=== PATIENT | male | born 1955 | race Caucasian/White ===

== ENCOUNTER 2022-05-27 01:30 | Day surgery (SDC) | payer BC, SELFPAY ==
[2022-05-18 14:09] VITALS: BMI 41.8
--- NOTE | 2022-05-20 11:50 | PC.NURSE ---
PATIENT INSTRUCTED ON HOLDING PLAVIX STARTING ON Tuesday05/23/2022, WILL TAKE LAST DOSE ON Tuesday05/22/2022 AND WILL HOLD TILL AFTER PROCEDURE. WILL REMAIN ON ASA 81 MG PO DAILY.
[2022-05-27 06:40] VITALS: BP 184/99; PULSE 79; RESP 20; TEMP 36.3; O2SAT 100
[2022-05-27] MEDS: LACTATED RINGERS 1,000 ML 150 ML IV CONT (06:42)
--- NOTE | 2022-05-27 07:21 | WPDANESEPPF ---
Anes - Initial Pre Proc Eval Procedure: Operation Date: 05/27/22 07:30 Proposed Procedures p Screening Colonoscopy - Kwadwo Peterson MD Date/Time: 05/27/22 07:21 Surgeon: Kwadwo Peterson MD Pre Op Diagnosis: hx of colon polyps Patient Data Age: 67 Gender: M Height: 1.8 m Weight: 139.3 kg Last Vital Signs Temp 97.3 F L 05/27/22 06:40 Pulse 79 05/27/22 06:40 Resp 20 05/27/22 06:40 BP 184/99 H 05/27/22 06:40 Pulse Ox 100 05/27/22 06:40 O2 Del Method Room Air 05/27/22 06:40 Allergies Allergy/AdvReac Type Severity Reaction Status Date / Time chlorhexidine Allergy Intermediate Rash Verified 05/27/22 06:39 Home Medications Medication Instructions Recorded Confirmed Type aspirin 81 mg tablet,delayed 81 mg PO DAILY 08/27/19 05/27/22 History release (Aspir-) clopidogrel 75 mg tablet 75 mg PO DAILY 08/28/19 05/27/22 History metoprolol tartrate 50 mg tablet 50 mg PO DAILY 08/28/19 05/27/22 History nitroglycerin 0.4 mg sublingual 0.4 mg sublingual Q5M PRN Pain 01/02/20 05/27/22 History tablet (Nitrostat) meloxicam 7.5 mg tablet 7.5 mg PO BID #60 tabs 07/09/20 05/27/22 Rx atorvastatin 80 mg tablet 80 mg PO DAILY 11/17/20 05/27/22 History losartan 50 mg tablet 50 mg PO DAILY #90 tabs 10/26/21 05/27/22 Rx allopurinol 100 mg tablet See Rx Instructions .Route 03/15/22 05/27/22 Rx .COMPLEX #90 tabs doxycycline hyclate 100 mg capsule See Rx Instructions .Route 03/15/22 05/27/22 Rx .COMPLEX #90 caps Patient hx anesthesia problems: none Family hx anesthesia problems: none Results Review: All pre-operative results and documents have been reviewed as part of the pre-operative evaluation. [facility] Past Medical History Medical History Body mass index (BMI) of 50-59.9 in adult (10/14/16) Body mass index [BMI] 40.0-44.9, adult (03/30/18) Body mass index [BMI] 45.0-49.9, adult (07/14/17) CAD S/P percutaneous coronary angioplasty Essential (primary) hypertension Gout, unspecified HLD (hyperlipidemia) Hx of non-ST elevation myocardial infarction (NSTEMI) Metabolic syndrome Morbid (severe) obesity due to excess calories Other and unspecified hyperlipidemia Polyosteoarthritis, unspecified Vitamin D deficiency Surgical History Surgical History Coronary angioplasty status History of total right hip replacement Family History Family History Father Family history of malignant neoplasm, Onset Age: 77 Sibling Family history of diabetes mellitus in first degree relative Mother Hypertension, Onset Age: 52 Social History Social History Smoking packs per day: 1 Smoking cigarettes per day: 20.0 Years smoked: 25 Smoking pack-years: 25.00 Smoking status: Former smoker Tobacco type: cigarettes Alcohol intake: current Drinks per week: 15 Alcohol use details: BEERS Substance use: never Substance use type: does not use Living arrangements: with family Spiritual care concerns: No Anes - Eval Final PreProcedure Day of Procedure 05/27/22 07:21 Patient weight: morbidly obese Heart: regular rate and rhythm Lungs: clear to auscultation Airway: Mallampati scale class II Neurological: alert and oriented Last oral intake: >/= 8 hours ASA classification: III Emergent: no Anesthetic plan: proceed Anesthesia type and monitoring: general GIVS and standard monitoring Results Review: All pre-operative results and documents have been reviewed as part of the pre-operative evaluation. Informed Consent: The patient's anesthetic plan and its attendant risks and benefits were discussed with the patient/family/POA. Questions were solicited and answers provided to the satisfaction of the patient/family/POA.
--- NOTE | 2022-05-27 07:21 | PM.IMHP ---
H&P: HPI History of Present Illness Date/Time: 05/27/22 07:21 Chief Complaint: History of colon polyps. Narrative: This is a 67-year-old white male patient presents for screening colonoscopy. Patient has a history of adenomatous colon polyp removed from colon 2013. Patient reports his current weight appetite bowel movements are stable. He denies abdominal pain. He has had no bleeding. Family history is noncontributory. Review of Systems Review of Systems: Review of systems noncontributory. [facility] Past Medical History Medical History Body mass index (BMI) of 50-59.9 in adult (10/14/16) Body mass index [BMI] 40.0-44.9, adult (03/30/18) Body mass index [BMI] 45.0-49.9, adult (07/14/17) CAD S/P percutaneous coronary angioplasty Essential (primary) hypertension Gout, unspecified HLD (hyperlipidemia) Hx of non-ST elevation myocardial infarction (NSTEMI) Metabolic syndrome Morbid (severe) obesity due to excess calories Other and unspecified hyperlipidemia Polyosteoarthritis, unspecified Vitamin D deficiency Surgical History Surgical History Coronary angioplasty status History of total right hip replacement Family History Family History Father Family history of malignant neoplasm, Onset Age: 77 Sibling Family history of diabetes mellitus in first degree relative Mother Hypertension, Onset Age: 52 Social History Social History Smoking packs per day: 1 Smoking cigarettes per day: 20.0 Years smoked: 25 Smoking pack-years: 25.00 Smoking status: Former smoker Tobacco type: cigarettes Alcohol intake: current Drinks per week: 15 Alcohol use details: BEERS Substance use: never Substance use type: does not use Living arrangements: with family Spiritual care concerns: No Meds Home Medications and Allergies Home Medications Medication Instructions Recorded Confirmed Type aspirin 81 mg tablet,delayed 81 mg PO DAILY 08/27/19 05/27/22 History release (Aspir-) clopidogrel 75 mg tablet 75 mg PO DAILY 08/28/19 05/27/22 History metoprolol tartrate 50 mg tablet 50 mg PO DAILY 08/28/19 05/27/22 History nitroglycerin 0.4 mg sublingual 0.4 mg sublingual Q5M PRN Pain 01/02/20 05/27/22 History tablet (Nitrostat) meloxicam 7.5 mg tablet 7.5 mg PO BID #60 tabs 07/09/20 05/27/22 Rx atorvastatin 80 mg tablet 80 mg PO DAILY 11/17/20 05/27/22 History losartan 50 mg tablet 50 mg PO DAILY #90 tabs 10/26/21 05/27/22 Rx allopurinol 100 mg tablet See Rx Instructions .Route 03/15/22 05/27/22 Rx .COMPLEX #90 tabs doxycycline hyclate 100 mg capsule See Rx Instructions .Route 03/15/22 05/27/22 Rx .COMPLEX #90 caps Allergies Allergy/AdvReac Type Severity Reaction Status Date / Time chlorhexidine Allergy Intermediate Rash Verified 05/27/22 06:39 Vital Signs Vital Signs - 24 hr 05/27/22 06:40 Temperature 97.3 F L Pulse Rate 79 Respiratory Rate 20 Blood Pressure 184/99 H Pulse Oximetry 100 Oxygen Delivery Room Air Exam Narrative: Physical exam reveals patient to be alert. Vital signs stable. HEENT exam is unremarkable. Patient is anicteric. Lungs are clear to auscultation and percussion. Heart is without murmur or extra sounds. Abdominal exam Is obese. bowel sounds are present soft nontender with no organomegaly. Digital external rectal exam is normal. Assessment and Plan Assessment and plan (1) History of colon polyps: Code(s): Z86.010 - Personal history of colonic polyps Status: Acute Assessment and Plan: Patient has a prior history of adenomatous colon polyp. Plan for surveillance colonoscopy now. Further recommendations will be given after endoscopy. (2) Obesity (BMI 30.0-34.9): Code(s):
[2022-05-27 07:42] VITALS: BP 104/51; PULSE 62; RESP 18; O2SAT 98
[2022-05-27 07:52] VITALS: BP 123/62; PULSE 62; RESP 20; O2SAT 99
[2022-05-27 08:02] VITALS: BP 129/69; PULSE 65; RESP 23; O2SAT 98
== END 2022-05-27 08:22 | disposition home or self-care (01) ==
PROVIDERS: PCP Emergency Medicine; Visit Provider Internal Medicine Gastroenterology
PROC: 0DJD8ZZ Inspection of Lower Intestinal Tract, Via Natural or Artificial Opening Endoscopic (ICD-10-PCS; CPT 45378; principal; 2022-05-27 07:30)
DX: Z12.11 Encounter for screening for malignant neoplasm of colon (principal); D12.5 Benign neoplasm of sigmoid colon; K64.8 Other hemorrhoids; I25.10 Atherosclerotic heart disease of native coronary artery without angina pectoris; I10 Essential (primary) hypertension; E78.5 Hyperlipidemia, unspecified; I25.2 Old myocardial infarction; M06.9 Rheumatoid arthritis, unspecified; E55.9 Vitamin D deficiency, unspecified; M15.9 Polyosteoarthritis, unspecified; Z79.02 Long term (current) use of antithrombotics/antiplatelets; Z79.82 Long term (current) use of aspirin; Z87.891 Personal history of nicotine dependence; E66.01 Morbid (severe) obesity due to excess calories; Z68.41 Body mass index [BMI] 40.0-44.9, adult
CPT/HCPCS: 45385; 88305; J2704; J7120

== ENCOUNTER 2022-08-28 20:47 | Emergency (ER) | payer BC, SELFPAY ==
--- NOTE | ~2022-08-28 | XR_ITS ---
EXAMINATION: XR chest 2V Exam Date/Time: 08/28/2022 21:25 DIE TRIPPER HISTORY: chest pain MIDSTERNAL, HX IA 5 STENTS PLACED X 4 YEARS AGO Comparison: 01/16/2018. RESULT: Lines, tubes, and devices: None. Lungs and pleura: Low lung volumes, particularly in the lateral view Diffuse reticular opacities and bronchovascular opacities, increased since the prior study. Cardiomediastinal silhouette: Stable. Other: No acute osseous or upper abdominal finding. IMPRESSION: Pulmonary findings may represent interstitial edema or respiratory bronchiolitis depending on the cli nical context. Reviewed, dictated and finalized at location K. TRIPPER IMPRESSION: Pulmonary findings may represent interstitial edema or respiratory bronchioliti s depending on the clinical context.
--- NOTE | 2022-08-28 20:48 | ECG_ITS ---
Measurements Intervals [place] Rate: 71 P: 74 MD: 164 QRS: 51 QRSD: 108 T: 36 QT: 400 QTc: 437 Interpretive Statements SINUS RHYTHM WITHIN NORMAL LIMITS NO PREVIOUS ECG AVAILABLE FOR COMPARISON Electronically Signed On 08-29-2022 8:35:20 [employer]OELECT[employer] PRODUCTION MANAGER by Dayday Read M.D.
[2022-08-28 20:55] VITALS: BP 176/75; PULSE 74; RESP 18; TEMP 36.6; O2SAT 97
[2022-08-28 21:09] LABS: Basophils Absolute Auto 0.1 K/mm3 (0.0-0.1); Basophils Percent Auto 0.6 % (0.2-1.2); Eosinophils Absolute Auto 0.2 K/mm3 (0-0.3); Eosinophils Percent Auto 2.5 % (0-4.4); Hematocrit 40.6 % (42.0-52.0); Hemoglobin 13.5 g/dL (14.0-18.0); Immature Granulocyte Absolute 0.05 K/mm3 (0.00-0.031); Immature Granulocyte Percent A 0.6 % (0-0.5); Lymphocytes Absolute Auto 2.02 K/mm3 (0.9-3.2); Lymphocytes Percent Auto 24.1 % (18.3-44.2); Mean Corpuscular HGB Conc 33.3 g/dl (32-36); Mean Corpuscular Hemoglobin 30.1 pg (26-34); Mean Corpuscular Volume 90.6 fl (80-100); Mean Platelet Volume 8.5 fl (7.4-10.4); Monocytes Absolute Auto 0.7 K/mm3 (0.1-0.6); Monocytes Percent Auto 8.5 % (2.6-8.5); Neutrophils Absolute Auto 5.3 K/mm3 (1.3-6.7); Neutrophils Percent Auto 63.7 % (45.5-73.1); Platelet Count Result 247 k/mm3 (150-375); Red Blood Count 4.48 M/mm3 (4.6-6.20); Red Cell Distribution Width 13.5 % (11.5-14.5); White Blood Count 8.4 K/mm3 (4.5-10.0)
--- NOTE | 2022-08-28 21:14 | PC.NURSE ---
Patient taken to xray via w/c from waiting room.
[2022-08-28 21:19] LABS: Alanine Aminotransferase 21 U/L (6-50); Albumin Level 4.4 g/dL (3.5-5.1); Alkaline Phosphatase 99 U/L (38-126); Anion Gap 7 mmol/L (8-16); Aspartate Amino Transferase 25 U/L (17-59); Bilirubin,Total 0.6 mg/dL (0.2-1.3); Blood Urea Nitrogen 22 mg/dL (9-20); Carbon Dioxide 25 mmol/L (22-30); Chloride 104 mmol/L (98-107); Estimated CRCL calculation 63 ml/min; Estimated Glomerular Filt Rate 47; Glucose 99 mg/dL (65-110); INR 1.1; Lipase 168 U/L (23-300); Potassium 4.1 mmol/L (3.4-5.0); Prothrombin Time 13.4 Seconds (11.1-14.7); Sodium 136 mmol/L (137-145)
[2022-08-28 21:20] LABS: Partial Thromboplastin Time 27.4 SECONDS (22.3-36.8)
[2022-08-28 21:30] LABS: Troponin I < 0.012 ng/mL (0.000-0.034)
[2022-08-29] VITALS (11 sets, daily range): BP systolic 130–160; BP diastolic 78–83; PULSE 58–94; RESP 14–22; O2SAT 95–100
[2022-08-29 00:53] LABS: Troponin I < 0.012 ng/mL (0.000-0.034)
--- NOTE | 2022-08-29 01:25 | PC.NURSE ---
Patient refused w/c back to room.
--- NOTE | 2022-08-29 03:19 | ED.CHESTPAIN ---
HPI - Chest Pain General Chief Complaint: Chest Pain Stated Complaint: Chest pain Time Seen by Provider: 08/29/22 01:22 History of Present Illness HPI narrative: Patient is a 67-year-old male who presents ER with chest pain. Reports he had finished grilling and sat down to eat and swallowed some food. He then developed some central chest pressure. It lasted for approximately 15 minutes. He did belch at 1 point and is unsure if that helped his symptoms. After symptoms abated he opted to come to the ER. He has had no chest pain since being here. No exertional chest pain. He does have history of AR in the past and sees Dr. Domingo. No fevers or chills or sweats. No nausea or vomiting. No history of gallstones. Denies radiation of pain to his shoulder or back. Related Data Home Medications Medication Instructions Recorded Confirmed aspirin 81 mg tablet,delayed 81 mg PO DAILY 08/27/19 05/27/22 release (Aspir-) clopidogrel 75 mg tablet 75 mg PO DAILY 08/28/19 05/27/22 metoprolol tartrate 50 mg tablet 50 mg PO DAILY 08/28/19 05/27/22 nitroglycerin 0.4 mg sublingual 0.4 mg sublingual Q5M PRN Pain 01/02/20 05/27/22 tablet (Nitrostat) Allergies Allergy/AdvReac Type Severity Reaction Status Date / Time chlorhexidine Allergy Intermediate Rash Verified 07/19/22 09:30 [facility] Past Medical History Medical History Body mass index (BMI) of 50-59.9 in adult (10/14/16) Body mass index [BMI] 40.0-44.9, adult (03/30/18) Body mass index [BMI] 45.0-49.9, adult (07/14/17) CAD S/P percutaneous coronary angioplasty Essential (primary) hypertension Gout, unspecified HLD (hyperlipidemia) Hx of non-ST elevation myocardial infarction (NSTEMI) Metabolic syndrome Morbid (severe) obesity due to excess calories Other and unspecified hyperlipidemia Polyosteoarthritis, unspecified Vitamin D deficiency Surgical History Surgical History Coronary angioplasty status History of total right hip replacement Family History Family History Father Family history of malignant neoplasm, Onset Age: 77 Sibling Family history of diabetes mellitus in first degree relative Mother Hypertension, Onset Age: 52 Social History Social History Smoking packs per day: 1 Smoking cigarettes per day: 20.0 Years smoked: 25 Smoking pack-years: 25.00 Smoking status: Former smoker Tobacco type: cigarettes Alcohol intake: current Drinks per week: 15 Alcohol use details: BEERS Substance use: never Substance use type: does not use Spiritual care concerns: No Exam Narrative: GENERAL: Well-appearing, well-nourished, and in no acute distress. HEAD: Normocephalic, atraumatic. NECK: Supple. CHEST: Clear to auscultation. No respiratory distress. HEART: Regular rate and rhythm. Normal peripheral pulses. ABDOMEN: Soft, nontender, nondistended. EXTREMITIES: Normal range of motion. 2+ edema. SKIN: Warm, dry, chronic venous stasis changes to lower extremities. NEURO: Alert and oriented x3. PSYCH: Normal mood and affect. Course Course Emergency Course: Discussed case with Dr. Read. Patient with brief chest pain at rest. No additional symptoms. Resolved on its own with 3 negative troponins. Patient has not had a previous stress test and likely will need 1. He should contact the office Tuesday morning 08/30/2022 to follow-up with them and get one scheduled. Patient currently has scheduled follow-up in October. Vital Signs Vital signs: Vital Signs Temperature 97.9 F 08/28/22 20:55 Pulse Rate 74 08/28/22 20:55 Respiratory Rate 18 08/28/22 20:55 Blood Pressure 176/75 H 08/28/22 20:55 Pulse Oximetry 97 08/28/22 20:55 Oxygen Delivery Room Air 08/28/22 20:55 [place]
[2022-08-29 03:23] LABS: Troponin I < 0.012 ng/mL (0.000-0.034)
[2022-08-29 03:50] LABS: NT Pro B Type Natriuretic Pept 100 pg/mL (5-100)
== END 2022-08-29 04:21 | disposition home or self-care (01) ==
PROVIDERS: Emergency Provider Emergency Medicine; PCP Emergency Medicine
DX: R07.89 Other chest pain (principal); I25.10 Atherosclerotic heart disease of native coronary artery without angina pectoris; E78.5 Hyperlipidemia, unspecified; I10 Essential (primary) hypertension; I25.2 Old myocardial infarction; Z87.891 Personal history of nicotine dependence; Z95.5 Presence of coronary angioplasty implant and graft
CPT/HCPCS: 36415; 71046; 80053; 83690; 83880; 84484; 85025; 85610; 85730; 93005; 99284

== ENCOUNTER 2023-09-13 09:59 | Inpatient (IN) | payer MEDICARE, OTHER, SELFPAY ==
[2023-09-13] VITALS (8 sets, daily range): BP systolic 119–168; BP diastolic 54–97; PULSE 57–69; RESP 14–20; TEMP 36.2–36.8; O2SAT 92–99; BMI 45.0
--- NOTE | ~2023-09-13 | US_ITS ---
EXAMINATION:US venous doppler LE BI INDICATION:Moderate embolism identified on recent examination. TECHNIQUE: Multiple grayscale, color flow and Doppler images of the right and left lower extremity de ep venous systems were obtained and reviewed. COMPARISON:CTA chest dated 09/13/2023 FINDINGS: There is deep venous thrombosis of the right popliteal vein. Left popliteal vein is patent. The common femoral, superficial femoral demonstrate normal respiratory variation, augmentation and c ompressibility. Color flow is also seen within the posterior tibial, peroneal, greater saphenous and profunda veins. IMPRESSION: 1: Deep venous thrombosis of the right popliteal vein. Reviewed, dictated and finalized at location B. E SALES DRIVER
--- NOTE | ~2023-09-13 | XR_ITS ---
EXAMINATION: XR chest 2V 09/13/2023 11:30 INDICATION: Redness of breath and chest pain PROCEDURE: 2 view chest COMPARISON: 08/28/2022 FINDINGS: The lungs are clear. The cardiomediastinal silhouette is within normal limits. There are no pleural effusions. There is no pneumothorax suspected. IMPRESSION: 1: NO ACUTE CARDIOPULMONARY DISEASE. Reviewed, dictated and finalized at location L. WORKER
--- NOTE | ~2023-09-13 | CT_ITS ---
EXAMINATION: CTA chest PE protocol DATE: 09/13/2023 14:33 REHABILITATION COUNSELOR INDICATION: Pulmonary embolism. Shortness of breath. Dyspnea. TECHNIQUE: Computed tomographic angiography (CTA) of the chest was performed with 100 mL Omnipaque-35 0 intravenous contrast. The dose-length product was 1056.49 mGy-cm. Maximum intensity projection 3D-r econstructions of the aorta and other arteries were constructed by the technologist on a separate wor kstation. COMPARISON: Chest x-ray dated 09/13/2023. FINDINGS: There is extensive pulmonary embolism involving the right main pulmonary artery, but right upper, middle and lower lobe segmental and left lower lobe segmental and bilateral subsegmental pulmo nary arteries. No thoracic lymphadenopathy. There is atherosclerosis of the aorta without aneurysm or dissection. No significant pleural or pericardial effusion. No focal airspace consolidation. No endo bronchial lesions. No pneumothorax. Mild thoracic spondylosis. IMPRESSION: 1. Extensive bilateral pulmonary embolism, large thrombus burden. Reviewed, dictated and finalized at location L. BILITATION COUNSELOR
[2023-09-13 10:28] LABS: Basophils Percent Auto 0.5 % (0.2-1.2); Eosinophils Absolute Auto 0.1 K/mm3 (0-0.3); Eosinophils Percent Auto 0.8 % (0-4.4); Hematocrit 44.9 % (42.0-52.0); Immature Granulocyte Absolute 0.08 K/mm3 (0.00-0.031); Immature Granulocyte Percent A 1.1 % (0-0.5); Lymphocytes Percent Auto 13.7 % (18.3-44.2); Mean Corpuscular HGB Conc 33.4 g/dl (32-36); Mean Corpuscular Hemoglobin 30.1 pg (26-34); Mean Platelet Volume 8.4 fl (7.4-10.4); Monocytes Absolute Auto 0.5 K/mm3 (0.1-0.6); Monocytes Percent Auto 7.1 % (2.6-8.5); Neutrophils Absolute Auto 5.6 K/mm3 (1.3-6.7); Neutrophils Percent Auto 76.8 % (45.5-73.1); Platelet Count Result 222 k/mm3 (150-375); Red Blood Count 4.99 M/mm3 (4.6-6.20); Red Cell Distribution Width 14.1 % (11.5-14.5); White Blood Count 7.3 K/mm3 (4.5-10.0)
[2023-09-13 10:37] LABS: Alanine Aminotransferase 37 U/L (6-50); Albumin Level 4.1 g/dL (3.5-5.1); Alkaline Phosphatase 124 U/L (38-126); Anion Gap 10 mmol/L (8-16); Aspartate Amino Transferase 28 U/L (17-59); Bilirubin,Total 1.3 mg/dL (0.2-1.3); Blood Urea Nitrogen 15 mg/dL (9-20); Calcium 9.4 mg/dL (8.4-10.2); Carbon Dioxide 23 mmol/L (22-30); Chloride 105 mmol/L (98-107); Estimated CRCL calculation 121 ml/min; Estimated Glomerular Filt Rate > 60; Glucose 107 mg/dL (65-110); Lipase 121 U/L (23-300); Sodium 138 mmol/L (137-145)
[2023-09-13 10:41] LABS: Prothrombin Time 14.1 Seconds (11.1-14.7)
[2023-09-13 10:42] LABS: Partial Thromboplastin Time 24.9 SECONDS (22.3-36.8)
[2023-09-13 10:49] LABS: Troponin I < 0.012 ng/mL (0.000-0.034)
[2023-09-13 11:06] LABS: NT Pro B Type Natriuretic Pept 454 pg/mL (19.9-100)
--- NOTE | 2023-09-13 11:38 | ED.SOB ---
HPI - SOB/Dyspnea General Chief Complaint: Shortness of Breath/Dyspnea Stated Complaint: dyspnea Time Seen by Provider: 09/13/23 11:33 Source: patient Mode of arrival: ambulatory Limitations: no limitations History of Present Illness HPI Narrative: 68 YEARS OLD WHITE MALE CAME TO THE EMERGENCY ROOM BECAUSE OF SHORTNESS OF BREATH ON EXERTION OVER THE LAST 4-5 DAYS. HE DENIES ANY FEVER, CHILLS, NAUSEA, VOMITING, CHEST PAIN,. PATIENT REPORTS SYMPTOMS OF COMMON COLD STARTED 2 WEEKS AGO INCLUDING RUNNY NOSE, SORE THROAT, COUGHING RESOLVED IN 1 WEEK. BEEN SYMPTOM FREE OVER THE LAST 7 DAYS, NOTICED SHORTNESS OF BREATH ONLY ON EXERTION OVER THE LAST 5 DAYS. PATIENT REPORTS THAT HE LIVES WITH ASYMPTOMATIC FAMILY Related Data Home Medications Medication Instructions Recorded Confirmed aspirin 81 mg tablet,delayed 81 mg PO DAILY 08/27/19 09/13/23 release (Aspir-) clopidogrel 75 mg tablet 75 mg PO DAILY 08/28/19 09/13/23 indomethacin 50 mg capsule 100 mg PO TID PRN GOUT 09/13/23 09/13/23 Allergies Allergy/AdvReac Type Severity Reaction Status Date / Time chlorhexidine Allergy Intermediate Rash Verified 09/13/23 15:21 Review of Systems Review of Systems: All systems reviewed & are unremarkable except as noted in HPI and below PMFSH Past Medical History Medical History Body mass index (BMI) of 50-59.9 in adult (10/14/16) Body mass index [BMI] 40.0-44.9, adult (03/30/18) Body mass index [BMI] 45.0-49.9, adult (07/14/17) CAD S/P percutaneous coronary angioplasty Essential (primary) hypertension Gout, unspecified HLD (hyperlipidemia) Hx of non-ST elevation myocardial infarction (NSTEMI) Metabolic syndrome Morbid (severe) obesity due to excess calories Other and unspecified hyperlipidemia Polyosteoarthritis, unspecified Vitamin D deficiency Surgical History Surgical History Coronary angioplasty status History of total right hip replacement Family History Family History (Updated 09/13/23 @ 15:21 by Riana Marks RN) Father Family history of malignant neoplasm, Onset Age: 77 Sibling Family history of diabetes mellitus in first degree relative Mother Hypertension, Onset Age: 52 Family history of diabetes mellitus in first degree relative Social History Social History Smoking packs per day: 1 Smoking cigarettes per day: 20.0 Years smoked: 25 Smoking pack-years: 25.00 Smoking status: Never smoker Tobacco type: cigarettes Alcohol intake: current Drinks per week: 6 Alcohol use details: BEERS Substance use: never Substance use type: does not use Do You Feel Safe in your Home?: Yes Lack of Transportation: No Lack of Food: Never True Current Housing: I Have Housing Concerned About Future Housing: No Difficulty Paying Gas/Electric Bills: No Difficulty Paying for Meds: No Currently Unemployed: No Education: Don't Know Difficulty w/ Childcare or Family Care: No Living arrangements: with family Spiritual care concerns: No Exam Narrative: GENERAL APPEARANCE: WELL-DEVELOPED, WELL-NOURISHED SKIN: NORMAL COLOR HEAD: NORMOCEPHALIC, NONTRAUMATIC EYES: CLEAR CONJUNCTIVA ENT: OROPHARYNX NORMAL, EARS NORMAL, NOSE NORMAL NECK: SUPPLE, NONTENDER CHEST AND RESPIRATORY: AIRWAY PATENT, NO RESPIRATORY DISTRESS, NO ACCESSORY MUSCLE USE HEART: REGULAR RATE/RHYTHM ABDOMEN: SOFT, NONTENDER, NO ORGANOMEGALY, QUIET BOWEL SOUNDS VASCULAR: NORMAL PERIPHERAL PULSES, NORMAL CAPILLARY REFILL. MUSCULOSKELETAL: NORMAL RANGE OF MOTION, NONTENDER BACK NEUROLOGIC: ALERT AND ORIENTED ?3, MANAGER PSYCHOLOGY IS NORMAL TESTED, NO GROSS MOTOR DEFICIT
[2023-09-13 12:05] LABS: Alveolar/Arterial O2 Gradient 52.1 mmHg; Base Excess ABG -1.6 mEq/l (+/-2.0); Device ROOM AIR; Fractional Inspired Oxygen 21 %; HCO3 ABG 21.2 mEq/l (22.0-26.0); Modified Allen's Test Pass; Oxygen Content ABG 18.7 %vol (16.0-22.0); Oxygen Saturation ABG 92.7 % (95.0-100.0); Oxyhemoglobin 89.9 % THb (90.0-100.0); PCO2 ABG 30.9 mmHg (35.0-45.0); PO2 ABG 60.6 mmHg (80.0-100.0); PO2 FiO2 Ratio Arterial Blood 2.89 %; Site Drawn LEFT RADIAL; Total Hemoglobin 14.8 g/dL (12.0-18.0); pH ABG 7.454 (7.350-7.450)
[2023-09-13 12:23] LABS: Influenza A QL RT-PCR Negative (Negative); Influenza B QL RT-PCR Negative (Negative); RSV RNA, RT-PCR Negative (Negative); SARS-CoV-2 RNA PCR Positive (Negative)
[2023-09-13 12:39] LABS: Lactic Acid Reflex 1.4 mmol/L (0.7-2.0)
--- NOTE | 2023-09-13 13:06 | ECG_ITS ---
Measurements Intervals [place] Rate: 64 P: 71 [place]: 174 QRS: 66 QRSD: 114 T: 41 QT: 404 QTc: 418 Interpretive Statements SINUS RHYTHM WITH OCCASIONAL VENTRICULAR PREMATURE COMPLEXES COMPARED TO ECG 08/28/2022 21:01:21 NO SIGNIFICANT CHANGES Electronically Signed On 09-13-2023 16:02:07 [employer] HEAT WELDER by Kathia Crain M.D.
[2023-09-13] MEDS: FUROSEMIDE INJ 40 MG/4 ML VIAL IV PUSH (13:20)
[2023-09-13] MEDS: ACETAMINOPHEN 325 MG TABLET 650 MG PO (13:21)
[2023-09-13 13:27] LABS: Troponin I < 0.012 ng/mL (0.000-0.034)
--- NOTE | 2023-09-13 15:12 | ADMGEN ---
This patient, Joaquin Greer, was admitted to 3 [facility] Surg Room 313-01. Patient/family oriented to hospital policies and general routines including ID bracelet, bed and alarms, visiting hours, pain management, procedures, bathroom and other care routines, personal items, smoking policy, room service/diet, and visiting hours. Information on how to activate the Rapid Response Team has been discussed. Patient/Family are encouraged to report perceived risks to care and to ask questions if they do not understand what they are told or what they should do. Report from Luisa in ER.
--- NOTE | 2023-09-13 15:48 | ECHO_ITS ---
Patient Info Name: Joaquin Greer Age: 68 years : 1955 Gender: Male Ht: 70 in Wt: 313 lbs BSA: 2.72 m2 HR: 76 bpm Heart Rhythm: Sinus Rhythm Technical Quality: Good Exam Date: 09/13/2023 4:06 PM Exam Location: Echo Lab Patient Status: Outpatient Admit Date: 09/13/2023 Staff Ordering Physician: Erica Macdonald PA-C Cylinder Steamer: Estrella Becker RDCS Attending Provider: Sage Dan MD Referring Physician: Torres DAVIS; Exam Type: CA echo dop color flow w con Study Info Indications - extensive PE Complete two-dimensional, color flow and Doppler transthoracic echocardiogram is performed with contrast to opacify the left ventricle and to improve the deliniation of the left ventricle endocardial borders. Contrast/Agitated Saline Contrast/Ag. Saline: Definity Amount: 3.00 ml Summary 1. Left ventricular chamber dimension is normal. 2. Left ventricular systolic function is normal, estimated at 65-70%. 3. The left ventricular diastolic function is grade I diastolic dysfunction. 4. Right ventricular chamber dimension is normal. 5. Right ventricular systolic function is normal. 6. There is trace mitral valve regurgitation. 7. There is trace tricuspid valve regurgitation. 8. There is trivial posterior pericardial effusion. Left Ventricle Left ventricular chamber dimension is normal. Left ventricular systolic function is normal, estimated at 65-70%. There is no increased left ventricular wall thickness. The left ventricular diastolic function is grade I diastolic dysfunction. Right Ventricle Right ventricular chamber dimension is normal. Right ventricular systolic function is normal. Left Atria Left atrial chamber dimension is normal. Right Atria Right atrial chamber dimension is normal. Atrial Septum Intact interatrial septum visualized by color flow imaging. Aortic Valve The aortic valve is not well visualized. There is no aortic valve stenosis. There is no aortic valve regurgitation. Pulmonic Valve The pulmonic valve is not well visualized. Mitral Valve There is trace mitral valve regurgitation. Tricuspid Valve There is trace tricuspid valve regurgitation. Pericardium/Pleural There is trivial posterior pericardial effusion. Inferior Vena Cava Normal inferior vena cava with >50% collapse upon inspiration consistent with normal right atrial pressure, 3 mmHg. Aorta The aortic root size at the sinus of Valsalva is normal. Left Ventricular Outflow Tract Name Value Normal LVOT 2D LVOT Diameter 2.00 cm LVOT Doppler LVOT Peak Gradient 4 mmHg LVOT Mean Gradient 2 mmHg LVOT VTI 24.22 cm LVOT VTI/AV VTI Ratio 0.80 LVOT Stroke Volume 75.69 ml LVOT CO 4.55 l/min LVOT CI 1.67 L/min/m2 Pulmonic Valve Name Value Normal RVOT Doppler
[2023-09-13] MEDS: PERFLUTREN LIPID MICROSPHERES 1.5 ML VIAL DILUTED TO 10 ML TOTAL VOLUME IV PUSH (16:10)
[2023-09-13 16:22] LABS: Basophils Absolute Auto 0.1 K/mm3 (0.0-0.1); Basophils Percent Auto 0.8 % (0.2-1.2); Eosinophils Percent Auto 0.4 % (0-4.4); Hematocrit 43.1 % (42.0-52.0); Hemoglobin 14.6 g/dL (14.0-18.0); Immature Granulocyte Absolute 0.05 K/mm3 (0.00-0.031); Immature Granulocyte Percent A 0.6 % (0-0.5); Lymphocytes Absolute Auto 1.15 K/mm3 (0.9-3.2); Lymphocytes Percent Auto 14.8 % (18.3-44.2); Mean Corpuscular HGB Conc 33.9 g/dl (32-36); Mean Corpuscular Hemoglobin 29.8 pg (26-34); Mean Platelet Volume 8.1 fl (7.4-10.4); Monocytes Absolute Auto 0.5 K/mm3 (0.1-0.6); Monocytes Percent Auto 6.7 % (2.6-8.5); Neutrophils Percent Auto 76.7 % (45.5-73.1); Platelet Count Result 215 k/mm3 (150-375); White Blood Count 7.8 K/mm3 (4.5-10.0)
--- NOTE | 2023-09-13 16:35 | IVDEFINITY ---
Prior to administration of IV Definity the patient was educated on the risks and benefits of the imaging enhancing agent including potential adverse side effects. The patient verbalized understanding. Allergies were verified. No exclusion criteria were identified and at least one of the following inclusion criteria were met: 1) physician request, 2) patient technically difficult to image (per the [place] [employer] Echocardi[employer] guidelines of two or more segments not discernable within the apical view), or 3) questionable left ventricular function. ?
[2023-09-13 16:40] LABS: Troponin I < 0.012 ng/mL (0.000-0.034)
[2023-09-13] MEDS: HEPARIN SODIUM 5,000 UNITS/ML VIAL 8000 UNITS IV PUSH (16:41)
[2023-09-13] MEDS: HEPARIN SOD/D5W 100 UNITS/ML 25,000 UNITS/250 ML BAG 15 UNITS IV CONT (16:42)
--- NOTE | 2023-09-13 17:47 | PM.IMHP ---
H&P: HPI History of Present Illness Date/Time: 09/13/23 15:30 Chief Complaint: Shortness of breath. Narrative: This is a very pleasant 58-year-old male with coronary artery disease with history of stents, hypertension, hyperlipidemia, and arthritis who presented to the emergency department via private vehicle from home for evaluation of shortness of breath. The patient provides the following history. About 2 weeks ago he developed symptoms of what he presumed was the common cold including sweats, runny nose, sore throat, dry cough, and mild shortness of breath. URI symptoms resolved however he remained short of breath and over the past 4 to 5 days he has become increasingly short of breath and he is now feeling short of breath with everyday activities of daily living. He denies sick contacts. He also denies fever, syncope, near syncope, chest pain, pleuritic pain, palpitations, sensations of racing heart, nausea, vomiting, diarrhea, and calf pain. In the ED: He was afebrile on arrival with stable blood pressures. Heart rate has been in the 60s in a sinus rhythm. Labs were significant for WBC count of 7.3, hemoglobin 15.0, normal electrolytes, lactic acid 1.4, troponin less than 0.012, proBNP 454. He was positive for SARS-CoV-2 by PCR but was negative for influenza and RSV. Chest x-ray showed no acute cardiopulmonary disease. Chest CTA showed extensive bilateral pulmonary embolism with a large thrombus burden. He has been started on a heparin drip and is being admitted for further treatment and close monitoring. Review of Systems Review of Systems: Twelve systems were reviewed and are negative except for as per HPI. COUNTS INCLUDE 234 BEDS AT THE [facility] Past Medical History Medical History (Updated 09/14/23 @ 00:53 by Erica Macdonald PA-C) Arthritis Coronary artery disease Essential (primary) hypertension Gout Hyperlipidemia Hypertension Metabolic syndrome Vitamin D deficiency Surgical History Surgical History (Updated 09/14/23 @ 00:51 by Erica Macdonald PA-C) History of coronary angioplasty with insertion of stent History of total right hip replacement Family History Family History Father Family history of malignant neoplasm, Onset Age: 77 Sibling Family history of diabetes mellitus in first degree relative Mother Hypertension, Onset Age: 52 Family history of diabetes mellitus in first degree relative Social History Social History (Updated 09/14/23 @ 00:52 by Erica Macdonald PA-C) Social History: Surrogate medical decision maker: Pia Escobar, spouse. Code status: Full code. Smoking packs per day: 1 Smoking cigarettes per day: 20.0 Years smoked: 25 Smoking pack-years: 25.00 Smoking status: Former smoker Tobacco type: cigarettes Alcohol intake: current Drinks per week: 6 Alcohol use details: Beer. Substance use: never Substance use type: does not use Do You Feel Safe in your Home?: Yes Lack of Transportation: No Lack of Food: Never True Current Housing: I Have Housing Concerned About Future Housing: No Difficulty Paying Gas/Electric Bills: No Difficulty Paying for Meds: No Currently Unemployed: No Education: Don't Know Difficulty w/ Childcare or Family Care: No Living arrangements: with family Additional living arrangements comments: Lives with spouse in [place]. Additional occupation/education comments: Desk job, works in sales (cabinetry). Spiritual care concerns: No Meds Home Medications and Allergies Home Medications Medication Instructions Recorded Confirmed Type aspirin 81 mg tablet,delayed 81 mg PO DAILY 08/27/19 09/13/23 History release (Aspir-) clopidogrel 75 mg tablet 75 mg PO DAILY 08/28/19 09/13/23 History atorvastatin 80 mg tablet See Rx Instructions .Route 02/11/23 09/13/23 Rx .COMPLEX #90 tabs allopurinol 100 mg tablet See Rx Instructions .Route 03/14/23 09/13/23
[2023-09-13 23:32] LABS: Partial Thromboplastin Time 79.9 SECONDS (22.3-36.8)
[2023-09-14] VITALS (8 sets, daily range): BP systolic 112–148; BP diastolic 63–88; PULSE 51–88; RESP 18; TEMP 35.7–36.7; O2SAT 94–99
[2023-09-14] MEDS: ACETAMINOPHEN 325 MG TABLET 650 MG PO (00:20)
[2023-09-14 06:34] LABS: Basophils Percent Auto 0.6 % (0.2-1.2); Eosinophils Absolute Auto 0.1 K/mm3 (0-0.3); Eosinophils Percent Auto 1.8 % (0-4.4); Hematocrit 41.9 % (42.0-52.0); Hemoglobin 13.5 g/dL (14.0-18.0); Immature Granulocyte Absolute 0.04 K/mm3 (0.00-0.031); Immature Granulocyte Percent A 0.6 % (0-0.5); Lymphocytes Absolute Auto 1.28 K/mm3 (0.9-3.2); Lymphocytes Percent Auto 19.5 % (18.3-44.2); Mean Corpuscular HGB Conc 32.2 g/dl (32-36); Mean Corpuscular Hemoglobin 29.1 pg (26-34); Mean Corpuscular Volume 90.3 fl (80-100); Mean Platelet Volume 8.4 fl (7.4-10.4); Monocytes Absolute Auto 0.5 K/mm3 (0.1-0.6); Monocytes Percent Auto 7.8 % (2.6-8.5); Neutrophils Absolute Auto 4.6 K/mm3 (1.3-6.7); Neutrophils Percent Auto 69.7 % (45.5-73.1); Platelet Count Result 193 k/mm3 (150-375); Red Blood Count 4.64 M/mm3 (4.6-6.20); Red Cell Distribution Width 14.1 % (11.5-14.5); White Blood Count 6.6 K/mm3 (4.5-10.0)
[2023-09-14 06:52] LABS: Partial Thromboplastin Time 68.9 SECONDS (22.3-36.8)
[2023-09-14] MEDS: HEPARIN SODIUM 5,000 UNITS/ML VIAL 4000 UNITS IV PUSH (07:02)
[2023-09-14] MEDS: ATORVASTATIN 40 MG TABLET 80 MG BY MOUTH (08:54)
[2023-09-14] MEDS: allopurinoL 100 MG TABLET BY MOUTH (08:54)
[2023-09-14] MEDS: CLOPIDOGREL BISULFATE 75 MG TABLET PO (08:54)
[2023-09-14] MEDS: ASPIRIN 81 MG ENTERIC TABLET PO (08:54)
[2023-09-14] MEDS: LOSARTAN POTASSIUM 50 MG TABLET BY MOUTH (08:55)
[2023-09-14] MEDS: METOPROLOL SUCCINATE EXT REL 50 MG TABCR BY MOUTH (08:55)
[2023-09-14] MEDS: HEPARIN SOD/D5W 100 UNITS/ML 25,000 UNITS/250 ML BAG 17 UNITS IV CONT ×2 (08:59→23:46)
--- NOTE | 2023-09-14 10:00 | PM.CNCAR ---
Assessment and Plan Assessment and plan (1) Bilateral pulmonary embolism: Code(s): I26.99 - Other pulmonary embolism without acute cor pulmonale Status: Acute Assessment and Plan: On Heparin drip. Echocardiogram pending. Will need to be transitioned to oral anticoagulation prior to discharge. (2) Coronary artery disease: Code(s): I25.10 - Atherosclerotic heart disease of [place] coronary artery without angina pectoris Status: Acute Assessment and Plan: Stable. Continue high intensity statin. As patient will need to be on oral anticoagulation, recommend to continue Plavix 75mg once daily in addition to the oral anticoagulation. Recommend to stop ASA at the time of discharge as patient does not need triple therapy from a coronary standpoint. Will arrange for follow up with Dr. Stanford. (3) COVID: Code(s): U07.1 - COVID-19 Status: Acute Assessment and Plan: As per primary team. (4) Hypertension: Code(s): I10 - Essential (primary) hypertension Status: Acute Assessment and Plan: Stable. Continue home antihypertensive medications. (5) Hyperlipidemia: Code(s): E78.5 - Hyperlipidemia, unspecified Status: Acute Assessment and Plan: Continue statin. History of Present Illness History of Present Illness Consult date/time: 09/14/23 10:00 Requesting physician: Erica Macdonald PA-C Consult reason: Other (Large PE, history of CAD on DAPT) Reason For Visit: Acute Hypoxic Respiratory Failure 2nd to COVID Inf Narrative: Cardiology consulted for recommendations regarding DAPT in setting of needing anticoagulation. This is a 68 year old male with coronary artery disease s/p prior PCI, hypertension, hyperlipidemia, osteoarthritis, morbid obesity who follows with Dr. Stanford. Patient had viral symptoms that began about 2 weeks ago and had increasing shortness of breath the past few days, for which he presented to [facility] for evaluation. EKG with normal sinus rhythm. Troponins are negative. He was found to be positive for COVID. CTA shwos extensive bilateral pulmonary embolism with a large thrombus burden. He was started on Heparin drip and admitted for further treatment. Patient denies any chest pain. No shortness of breath at rest. Has been taking ASA and Plavix at home. Review of Systems Review of Systems: All systems reviewed & are unremarkable except as noted in HPI and below (HPI) [facility] Past Medical History Medical History Arthritis Coronary artery disease Essential (primary) hypertension Gout Hyperlipidemia Hypertension Metabolic syndrome Vitamin D deficiency Surgical History Surgical History History of coronary angioplasty with insertion of stent History of total right hip replacement Family History Family History Father Family history of malignant neoplasm, Onset Age: 77 Sibling Family history of diabetes mellitus in first degree relative Mother Hypertension, Onset Age: 52 Family history of diabetes mellitus in first degree relative Social History Social History Social History: Surrogate medical decision maker: Pia Porrasmariel, spouse. Code status: Full code. Smoking packs per day: 1 Smoking cigarettes per day: 20.0 Years smoked: 25 Smoking pack-years: 25.00 Smoking status: Former smoker Tobacco type: cigarettes Alcohol intake: current Drinks per week: 6 Alcohol use details: Beer. Substance use: never Substance use type: does not use Do You Feel Safe in your Home?: Yes Lack of Transportation: No Lack of Food: Never True Current Housing: I Have Housing Concerned About Future Housing: No Difficulty Paying Gas/Electric Bills: No Difficulty Paying f
[2023-09-14 13:30] LABS: Partial Thromboplastin Time 94.8 SECONDS (22.3-36.8)
--- NOTE | 2023-09-14 14:57 | PCCCNOTE ---
On 09/14/23, the student, [Bruna Bee], provided care and completed [facility] documentation on this patient. I have reviewed the student's documentation and agree with the findings.
--- NOTE | 2023-09-14 15:48 | PM.IMPN ---
Progress Note: A&P Assessment and Plan (1) Bilateral pulmonary embolism: Code(s): I26.99 - Other pulmonary embolism without acute cor pulmonale Status: Acute Assessment and Plan: Chest CTA shows extensive bilateral pulmonary embolism with large thrombus burden. He is hemodynamically stable with no evidence to suggest right heart strain. Continue heparin drip for at least 24 to 48 hours before transitioning to DOAC. Echocardiogram -pending -lower extremity venous Doppler ultrasounds -deep venous thrombosis of the right popliteal vein (2) COVID: Code(s): U07.1 - COVID-19 Status: Acute Assessment and Plan: Patient had URI symptoms 2 weeks ago and those resolved within a week. Tested positive for COVID today however does not seem to have active infection. Check with Infectious Disease nurse though most likely can come off of isolation. (3) Hypertension: Code(s): I10 - Essential (primary) hypertension Status: Acute Assessment and Plan: Blood pressures were reviewed and they are well controlled and stable. Antihypertensives will be reviewed and resumed as appropriate. (4) Hyperlipidemia: Code(s): E78.5 - Hyperlipidemia, unspecified Status: Acute Assessment and Plan: Continue statin; LFTs within normal limits. (5) Coronary artery disease: Code(s): I25.10 - Atherosclerotic heart disease of [place] coronary artery without angina pectoris Status: Acute Assessment and Plan: History of multiple stents on dual antiplatelet therapy, followed by Dr. Stanford. Cardiology consulted for recommendations regarding dual antiplatelet therapy and DOAC. cardiology recommends stopping the aspirin on discharge and continuing the clopidogrel and adding DOAC Time Spent With Patient Time with patient: 15 - 25 minutes Subjective Date/time seen: 09/14/23 1015 Interval history: 09/13: This is a very pleasant 58-year-old male with coronary artery disease with history of stents, hypertension, hyperlipidemia, and arthritis who presented to the emergency department via private vehicle from home for evaluation of shortness of breath. The patient provides the following history. About 2 weeks ago he developed symptoms of what he presumed was the common cold including sweats, runny nose, sore throat, dry cough, and mild shortness of breath. URI symptoms resolved however he remained short of breath and over the past 4 to 5 days he has become increasingly short of breath and he is now feeling short of breath with everyday activities of daily living. He denies sick contacts. He also denies fever, syncope, near syncope, chest pain, pleuritic pain, palpitations, sensations of racing heart, nausea, vomiting, diarrhea, and calf pain. In the ED: He was afebrile on arrival with stable blood pressures. Heart rate has been in the 60s in a sinus rhythm. Labs were significant for WBC count of 7.3, hemoglobin 15.0, normal electrolytes, lactic acid 1.4, troponin less than 0.012, proBNP 454. He was positive for SARS-CoV-2 by PCR but was negative for influenza and RSV. Chest x-ray showed no acute cardiopulmonary disease. Chest CTA showed extensive bilateral pulmonary embolism with a large thrombus burden. He has been started on a heparin drip and is being admitted for further treatment and close monitoring. 09/14: On rounding this morning patient in Fowlers position visiting with with a pleasant affect. Denies any c/o currently, but states he is still SOB with minimal exertion. Pt denies any CP, abdominal pain, nausea, vomiting. States he still has an occasional cough. Denies any claudication. Noted to have end expiratory wheezing to the RLL, which patient states is not uncommon for him. No calf tenderness to palpation or cord noted. Bilateral pedal and posterior tibial pulses palpable and equal. Pt is currently on room air with an oxygen saturation of 96%. Awaiting the ECHO.
[2023-09-14 20:42] LABS: Partial Thromboplastin Time 77.9 SECONDS (22.3-36.8)
[2023-09-15] VITALS (7 sets, daily range): BP systolic 111–146; BP diastolic 65–95; PULSE 50–77; RESP 18–20; TEMP 35.6–37; O2SAT 96–99
[2023-09-15] MEDS: allopurinoL 100 MG TABLET BY MOUTH (07:59)
[2023-09-15] MEDS: METOPROLOL SUCCINATE EXT REL 50 MG TABCR BY MOUTH (07:59)
[2023-09-15] MEDS: ATORVASTATIN 40 MG TABLET 80 MG BY MOUTH (07:59)
[2023-09-15] MEDS: LOSARTAN POTASSIUM 50 MG TABLET BY MOUTH (07:59)
[2023-09-15] MEDS: CLOPIDOGREL BISULFATE 75 MG TABLET PO (08:00)
[2023-09-15] MEDS: ASPIRIN 81 MG ENTERIC TABLET PO (08:00)
--- NOTE | 2023-09-15 08:43 | PM.IMPN ---
Progress Note: A&P Assessment and Plan (1) Bilateral pulmonary embolism: Code(s): I26.99 - Other pulmonary embolism without acute cor pulmonale Status: Acute Assessment and Plan: Chest CTA shows extensive bilateral pulmonary embolism with large thrombus burden. He is hemodynamically stable with no evidence to suggest right heart strain. Continue heparin drip for at least 24 to 48 hours before transitioning to DOAC. Consult cardiology Echocardiogram -unremarkable -lower extremity venous Doppler ultrasounds -deep venous thrombosis of the right popliteal vein -Will transition heparin drip to Eliquis 10 mg BID x 7 days in anticipation of discharge. (2) COVID: Code(s): U07.1 - COVID-19 Status: Acute Assessment and Plan: Patient had URI symptoms 2 weeks ago and those resolved within a week. Tested positive for COVID today however does not seem to have active infection. Check with Infectious Disease nurse though most likely can come off of isolation. (3) Hypertension: Code(s): I10 - Essential (primary) hypertension Status: Acute Assessment and Plan: Blood pressures were reviewed and they are well controlled and stable. Antihypertensives will be reviewed and resumed as appropriate. (4) Hyperlipidemia: Code(s): E78.5 - Hyperlipidemia, unspecified Status: Acute Assessment and Plan: Continue statin; LFTs within normal limits. (5) Coronary artery disease: Code(s): I25.10 - Atherosclerotic heart disease of [place] coronary artery without angina pectoris Status: Acute Assessment and Plan: History of multiple stents on dual antiplatelet therapy, followed by Dr. Stanford. Cardiology consulted for recommendations regarding dual antiplatelet therapy and DOAC. cardiology recommends stopping the aspirin on discharge and continuing the clopidogrel and adding DOAC Time Spent With Patient Time with patient: 15 - 25 minutes Subjective Date/time seen: 09/15/23 08:43 Interval history: 09/13:? This is a very pleasant 58-year-old male with coronary artery disease with history of stents, hypertension, hyperlipidemia, and arthritis who presented to the emergency department via private vehicle from home for evaluation of shortness of breath. The patient provides the following history. About 2 weeks ago he developed symptoms of what he presumed was the common cold including sweats, runny nose, sore throat, dry cough, and mild shortness of breath. URI symptoms resolved however he remained short of breath and over the past 4 to 5 days he has become increasingly short of breath and he is now feeling short of breath with everyday activities of daily living. He denies sick contacts. He also denies fever, syncope, near syncope, chest pain, pleuritic pain, palpitations, sensations of racing heart, nausea, vomiting, diarrhea, and calf pain. In the ED: He was afebrile on arrival with stable blood pressures. Heart rate has been in the 60s in a sinus rhythm. Labs were significant for WBC count of 7.3, hemoglobin 15.0, normal electrolytes, lactic acid 1.4, troponin less than 0.012, proBNP 454. He was positive for SARS-CoV-2 by PCR but was negative for influenza and RSV. Chest x-ray showed no acute cardiopulmonary disease. Chest CTA showed extensive bilateral pulmonary embolism with a large thrombus burden. He has been started on a heparin drip and is being admitted for further treatment and close monitoring. 09/14:? On rounding this morning patient in Fowlers position visiting with with a pleasant affect.? Denies any c/o currently, but states he is still SOB with minimal exertion. Pt denies any CP, abdominal pain, nausea, vomiting.? States he still has an occasional cough.? Denies any claudication.? Noted to have end expiratory wheezing to the RLL, which patient states is not uncommon for him.? No calf tenderness to palpation or cord noted.? Bilateral pedal and posterior tib
[2023-09-15 09:11] LABS: Basophils Percent Auto 0.5 % (0.2-1.2); Eosinophils Absolute Auto 0.1 K/mm3 (0-0.3); Eosinophils Percent Auto 0.8 % (0-4.4); Hemoglobin 13.8 g/dL (14.0-18.0); Immature Granulocyte Absolute 0.06 K/mm3 (0.00-0.031); Immature Granulocyte Percent A 0.8 % (0-0.5); Lymphocytes Absolute Auto 1.11 K/mm3 (0.9-3.2); Lymphocytes Percent Auto 13.9 % (18.3-44.2); Mean Corpuscular HGB Conc 32.9 g/dl (32-36); Mean Corpuscular Hemoglobin 29.6 pg (26-34); Mean Corpuscular Volume 90.1 fl (80-100); Mean Platelet Volume 8.3 fl (7.4-10.4); Monocytes Absolute Auto 0.5 K/mm3 (0.1-0.6); Monocytes Percent Auto 6.1 % (2.6-8.5); Neutrophils Absolute Auto 6.2 K/mm3 (1.3-6.7); Neutrophils Percent Auto 77.9 % (45.5-73.1); Platelet Count Result 182 k/mm3 (150-375); Red Blood Count 4.66 M/mm3 (4.6-6.20); Red Cell Distribution Width 14.6 % (11.5-14.5)
[2023-09-15 09:21] LABS: Anion Gap 8 mmol/L (8-16); Blood Urea Nitrogen 13 mg/dL (9-20); Carbon Dioxide 23 mmol/L (22-30); Chloride 105 mmol/L (98-107); Estimated CRCL calculation 124 ml/min; Estimated Glomerular Filt Rate > 60; Glucose 106 mg/dL (65-110); Potassium 4.2 mmol/L (3.4-5.0); Sodium 136 mmol/L (137-145)
--- NOTE | 2023-09-15 14:08 | PCCCNOTE ---
On 09/15/23, the student, [Bruna Bee], provided care and completed [facility] documentation on this patient. I have reviewed the student's documentation and agree with the findings.
[2023-09-15] MEDS: HEPARIN SOD/D5W 100 UNITS/ML 25,000 UNITS/250 ML BAG 17 UNITS IV CONT (15:29)
[2023-09-15] MEDS: ACETAMINOPHEN 325 MG TABLET 650 MG PO (17:30)
[2023-09-15 19:59] LABS: Partial Thromboplastin Time 71.7 SECONDS (22.3-36.8)
[2023-09-15] MEDS: APIXABAN 5 MG TABLET 10 MG PO (21:30)
[2023-09-16] VITALS: BP 129/76; PULSE 64; PULSE 72; RESP 20; TEMP 36.4; O2SAT 98
[2023-09-16 04:00] VITALS: BP 137/77; PULSE 46; PULSE 62; RESP 20; TEMP 36.8; O2SAT 96
[2023-09-16 08:25] LABS: Basophils Absolute Auto 0.1 K/mm3 (0.0-0.1); Basophils Percent Auto 0.8 % (0.2-1.2); Eosinophils Absolute Auto 0.1 K/mm3 (0-0.3); Eosinophils Percent Auto 1.4 % (0-4.4); Hemoglobin 13.6 g/dL (14.0-18.0); Immature Granulocyte Absolute 0.04 K/mm3 (0.00-0.031); Immature Granulocyte Percent A 0.6 % (0-0.5); Lymphocytes Absolute Auto 1.09 K/mm3 (0.9-3.2); Lymphocytes Percent Auto 17.1 % (18.3-44.2); Mean Corpuscular HGB Conc 32.4 g/dl (32-36); Mean Corpuscular Hemoglobin 29.6 pg (26-34); Mean Corpuscular Volume 91.5 fl (80-100); Mean Platelet Volume 8.4 fl (7.4-10.4); Monocytes Absolute Auto 0.6 K/mm3 (0.1-0.6); Monocytes Percent Auto 9.7 % (2.6-8.5); Neutrophils Absolute Auto 4.5 K/mm3 (1.3-6.7); Neutrophils Percent Auto 70.4 % (45.5-73.1); Platelet Count Result 180 k/mm3 (150-375); Red Blood Count 4.59 M/mm3 (4.6-6.20); Red Cell Distribution Width 14.6 % (11.5-14.5); White Blood Count 6.4 K/mm3 (4.5-10.0)
[2023-09-16 08:35] LABS: Anion Gap 7 mmol/L (8-16); Blood Urea Nitrogen 11 mg/dL (9-20); Calcium 9.1 mg/dL (8.4-10.2); Carbon Dioxide 23 mmol/L (22-30); Chloride 105 mmol/L (98-107); Estimated CRCL calculation 124 ml/min; Estimated Glomerular Filt Rate > 60; Glucose 95 mg/dL (65-110); Potassium 4.2 mmol/L (3.4-5.0); Sodium 135 mmol/L (137-145)
[2023-09-16 08:46] VITALS: PULSE 58
[2023-09-16] MEDS: METOPROLOL SUCCINATE EXT REL 50 MG TABCR BY MOUTH (08:46)
[2023-09-16] MEDS: LOSARTAN POTASSIUM 50 MG TABLET BY MOUTH (08:46)
[2023-09-16] MEDS: CLOPIDOGREL BISULFATE 75 MG TABLET PO (08:46)
[2023-09-16] MEDS: ACETAMINOPHEN 325 MG TABLET 650 MG PO (08:47)
[2023-09-16] MEDS: allopurinoL 100 MG TABLET BY MOUTH (08:47)
[2023-09-16] MEDS: APIXABAN 5 MG TABLET 10 MG PO (08:47)
[2023-09-16] MEDS: ATORVASTATIN 40 MG TABLET 80 MG BY MOUTH (08:47)
[2023-09-16 08:50] VITALS: PULSE 55
--- NOTE | 2023-09-16 09:38 | PM.DS ---
DS: Admitting Diagnosis Discharge Date 09/16/23 Admitting Diagnosis Pulmonary embolism DS: Discharge Diagnosis Discharge Diagnosis (1) COVID: Code(s): U07.1 - COVID-19 Status: Acute (2) Hypertension: Code(s): I10 - Essential (primary) hypertension Status: Acute (3) Hyperlipidemia: Code(s): E78.5 - Hyperlipidemia, unspecified Status: Acute (4) Coronary artery disease: Code(s): I25.10 - Atherosclerotic heart disease of [place] coronary artery without angina pectoris Status: Acute DS: Summary Hospital Course Hospital Course: Patient is a 68-year-old male who presented emergency room for shortness of breath found to have bilateral PE. Patient was started on anticoagulation and transition to apixaban at discharge. He underwent an echocardiogram which did not reveal any right heart strain. Day of discharge she was feeling better and was ambulating without significant shortness of breath. He has no history of blood clots and had a recent history of COVID which is likely the etiology. Would recommend 6 months of anticoagulation than speak to his primary care physician about getting off of the medication. Patient agreed. We discussed the worrisome signs and symptoms come back to emergency room. We discussed Eliquis extensively and he understands not to use ibuprofen and that his cardiac medications have changed. 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 Status at Discharge Functional status at discharge: independent ambulation Overall status at discharge: patient is progressing back to baseline Time Spent with Patient Time attestation: Total time spent providing and/or coordinating discharge services: 35 minutes Time spent: Greater than 30 minutes Exam Narrative: General: Well developed well nourished patient in NAD HEENT: normocephalic Neck: supple Neuro: Alert and oriented x4 CV:RRR Resp:CTA Abd: Soft, non distended. No pain to palpation. Positive bowel sounds Extremities: No swelling, erythema, or open wounds. mild pain to the right foot due to gout DS: Data Data Completed and Pending Labs on day of discharge: Labs from last 24 hours 09/16/23 09/15/23 08:15 19:27 WBC 6.4 RBC 4.59 L Hgb 13.6 L Hct 42.0 MCV 91.5 MCH 29.6 MCHC 32.4 RDW 14.6 H Plt Count 180 MPV 8.4 Immature Gran % (Auto) 0.6 H Neut % (Auto) 70.4 Lymph % (Auto) 17.1 L [place] % (Auto) 9.7 H Eos % (Auto) 1.4 Baso % (Auto) 0.8 Lymph # (Auto) 1.09 [place] # (Auto) 0.6 Eos # (Auto) 0.1 Baso # (Auto) 0.1 Abs Immat Gran (auto) 0.04 H Absolute Neuts (auto) 4.5 Absolute Nucleated RBC 0.0 Nucleated RBC % 0.0 APTT 71.7 H Sodium 135 L Potassium 4.2 Chloride 105 Carbon Dioxide 23 Anion Gap 7 L BUN 11 Creatinine 0.70 Estim Creat Clear Calc 124 Estimated GFR > 60 Glucose 95 Calcium 9.1 Preliminary micro results at discharge 09/13/23 12:08 Blood Culture - Preliminary Blood 09/13/23 12:09 Blood Culture - Preliminary Blood Discharge Plan Discharge Attending physician on discharge: Lee Garibay Consulting providers: Anam Stanford Discharging Clinician: Tiffanie Chapa Patient Disposition: Home, Self-Care Activity: as tolerated Diet: heart healthy Discharge Instructions: General Medicine Discharge Instructions: Follow Up with your primary care provider and 1-2 weeks to discuss this stay. Call them sooner if you notice any dark black stool or excessive bleeding Worrisome signs and symptoms to come back to emergency room for: Worsening shortness of breath, chest pain, fevers 100.3 or greater, progressive significant weakness, or any other worrisome symptom Patient Instructions: Clopidogrel (By mouth), Apixaban (By mouth) Stand Alone Forms: General Discharge Information, Work/School Release IP Follow-up/Referrals:
[2023-09-16 12:00] VITALS: PULSE 55
[2023-09-16 13:56] VITALS: BP 117/75; PULSE 68; RESP 18; TEMP 35.9; O2SAT 100
== END 2023-09-16 16:36 | disposition home or self-care (01) | DRG 176 ==
LOC: ANHED 13:00 → ANH3MEDSUR 14:43
PROVIDERS: Nurse Practitioner Family; Physician Assistant; Admitting Provider Family Medicine; Emergency Provider Emergency Medicine; PCP Emergency Medicine; Visit Provider Physician Assistant
DX: I26.99 Other pulmonary embolism without acute cor pulmonale (principal); Z68.42 Body mass index [BMI] 45.0-49.9, adult; I82.431 Acute embolism and thrombosis of right popliteal vein; U09.9 Post COVID-19 condition, unspecified; I25.10 Atherosclerotic heart disease of native coronary artery without angina pectoris; E78.5 Hyperlipidemia, unspecified; I10 Essential (primary) hypertension; M19.90 Unspecified osteoarthritis, unspecified site; E88.810 Metabolic syndrome; Z96.641 Presence of right artificial hip joint; E66.01 Morbid (severe) obesity due to excess calories; Z95.5 Presence of coronary angioplasty implant and graft; Z87.891 Personal history of nicotine dependence; Z79.82 Long term (current) use of aspirin; I25.2 Old myocardial infarction
CPT/HCPCS: 36415; 36600; 71046; 71275; 80048; 80053; 82805; 83605; 83690; 83880; 84484; 85025; 85610; 85730; 87040; 87637; 93005; 93970; 96365; 96366; 96375; 99285; A9270; C8929; G0378; J1644; J1940; Q9957; Q9967

== ENCOUNTER 2023-10-03 08:04 | Emergency (ER) | payer MEDICARE, OTHER, SELFPAY ==
--- NOTE | 2023-10-03 08:17 | ED.WOUNDLAC ---
HPI - Wound/Laceration General Chief Complaint: Wound/Laceration Stated Complaint: skin tear rt leg Time Seen by Provider: 10/03/23 08:21 Source: patient Mode of arrival: ambulatory Limitations: no limitations History of Present Illness HPI narrative: 68-year-old male with a history of CAD and bilateral PEs on Plavix and Eliquis, presented for complaint of skin tear to the right lower leg. States while using a metal device to help himself pulling on his socks, the metal scraped the leg. He has been unable to get the bleeding to stop. Denies any other concerns at this time. Related Data Home Medications Medication Instructions Recorded Confirmed clopidogrel 75 mg tablet 75 mg PO DAILY 08/28/19 10/03/23 Allergies Allergy/AdvReac Type Severity Reaction Status Date / Time chlorhexidine Allergy Intermediate Rash Verified 10/03/23 08:21 Review of Systems Review of Systems: CONSTITUTIONAL: Denies body aches, fever, chills, or sweats. EYES: Denies visual changes, redness, or discharge. ENT: Denies rhinorrhea, congestion CARDIOVASCULAR: Denies chest pain, palpitations, or edema. RESPIRATORY: Denies cough or dyspnea. GASTROINTESTINAL: Denies abdominal pain, nausea, vomiting, or diarrhea. SKIN: reports RLE skin tear MUSCULOSKELETAL: Denies back pain, joint pain, or myalgia. NEUROLOGIC: Denies headache, numbness, tingling, or weakness. [facility] Past Medical History Medical History Arthritis Coronary artery disease Essential (primary) hypertension Gout Hyperlipidemia Hypertension Metabolic syndrome Vitamin D deficiency Surgical History Surgical History History of coronary angioplasty with insertion of stent History of total right hip replacement Family History Family History Father Family history of malignant neoplasm, Onset Age: 77 Sibling Family history of diabetes mellitus in first degree relative Mother Hypertension, Onset Age: 52 Family history of diabetes mellitus in first degree relative Social History Social History Social History: Surrogate medical decision maker: Pia Escobar, spouse. Code status: Full code. Smoking packs per day: 1 Smoking cigarettes per day: 20.0 Years smoked: 25 Smoking pack-years: 25.00 Smoking status: Former smoker Tobacco type: cigarettes Alcohol intake: current Drinks per week: 6 Alcohol use details: Beer. Substance use: never Substance use type: does not use Do You Feel Safe in your Home?: Yes Lack of Transportation: No Lack of Food: Never True Current Housing: I Have Housing Concerned About Future Housing: No Difficulty Paying Gas/Electric Bills: No Difficulty Paying for Meds: No Currently Unemployed: No Education: Don't Know Difficulty w/ Childcare or Family Care: No Living arrangements: with family Additional living arrangements comments: Lives with spouse in [place]. Additional occupation/education comments: Desk job, works in sales (cabinetry). Spiritual care concerns: No Comments At time of signature, I have reviewed and agree with nursing past medical, surgical, social and family history unless otherwise noted. Please see nursing chart for further information. There is no relevant family history pertinent to the presenting complaint Exam Narrative: GENERAL: Well-appearing HEAD: Normocephalic, atraumatic. EYES: conjunctivae clear, and EOMI. ENT: Mucous membranes moist. Oropharynx without edema, erythema or lesions. NECK: Supple. No lymphadenopathy CHEST: Clear to auscultation. HEART: Regular rate and rhythm. SKIN: Warm, dry. RLE with V-shaped skin tear flap [id number], moderate bleeding. BLEs with 2+ pitting edema and red/purple discoloration. NEURO: Al
[2023-10-03 08:19] VITALS: BP 181/77; PULSE 64; RESP 18; TEMP 36.5; O2SAT 100
[2023-10-03] MEDS: TETANUS,DIPHTHERIA,AC PERTUSSIS ADULT (0.5 ML) BOOSTRIX IM (09:24)
== END 2023-10-03 09:32 | disposition home or self-care (01) ==
PROVIDERS: Emergency Provider Nurse Practitioner Family; PCP Emergency Medicine
DX: S81.811A Laceration without foreign body, right lower leg, initial encounter (principal); W45.8XXA Other foreign body or object entering through skin, initial encounter; Z23 Encounter for immunization; Z87.891 Personal history of nicotine dependence; M19.90 Unspecified osteoarthritis, unspecified site; I25.10 Atherosclerotic heart disease of native coronary artery without angina pectoris; I10 Essential (primary) hypertension; M10.9 Gout, unspecified; E78.5 Hyperlipidemia, unspecified; Z95.5 Presence of coronary angioplasty implant and graft; Z96.641 Presence of right artificial hip joint
CPT/HCPCS: 12004; 90471; 90715; 99213; G0463

== ENCOUNTER 2024-05-08 05:58 | Emergency (ER) | payer MEDICARE, OTHER, SELFPAY ==
--- NOTE | ~2024-05-08 | CT_ITS ---
EXAMINATION: CT abdomen pelvis wo con DATE: 05/08/2024 07:09 INDICATION: Hematuria. Low back pain. TECHNIQUE: Computed tomography (CT) of the abdomen and pelvis was performed without intravenous contr ast. Automated exposure control and iterative reconstruction technique were employed. The dose-length product was 1644.05 mGy-cm. COMPARISON: Chest CT 09/13/2023 FINDINGS: The visualized portions of the lung bases demonstrate mild chronic interstitial lung diseas e. Calcified pulmonary nodules are consistent with old granulomatous disease. No pleural effusion. Th e heart size is normal. There are coronary artery calcifications. No pericardial effusion. The centra l pulmonaries are enlarged, consistent with pulmonary arterial hypertension. There is mild bilateral gynecomastia. The liver, gallbladder, spleen, pancreas, and adrenal glands are normal. There is an 18 mm cyst in right kidney. There are 3 mm and 2 mm stones in right kidney. There is mild right hydrone phrosis. There is a 5 mm stone in proximal right ureter. There is a 3 mm stone in the bladder. Left k idney is normal. The prostate is severely enlarged. There are no dilated loops of bowel. The appendix is normal. There is calcified atherosclerosis of the aorta and many of the other arteries. There are no pathologically enlarged lymph nodes. There is no free intraperitoneal fluid. There is a left ingu inal hernia containing fat. There are healing fractures of left superior and inferior pubic rami. The re is a total right hip arthroplasty. There is advanced left hip osteoarthritis with loose bodies. Th ere is severe thoracic and lumbar spondylosis. There is mild chronic height loss of multiple vertebra l bodies. IMPRESSION: 1. 5 mm stone in proximal right ureter with mild right hydronephrosis. 2. Small nonobstructing right kidney stones. 3. 3 mm bladder stone. Reviewed, dictated and finalized at location A.
[2024-05-08 06:08] VITALS: BP 159/82; PULSE 71; RESP 17; TEMP 36.9; O2SAT 97
[2024-05-08 06:55] LABS: Basophils Percent Auto 0.5 % (0.2-1.2); Eosinophils Percent Auto 0.4 % (0-4.4); Hematocrit 40.7 % (42.0-52.0); Hemoglobin 13.7 g/dL (14.0-18.0); Immature Granulocyte Absolute 0.03 K/mm3 (0.00-0.031); Immature Granulocyte Percent A 0.4 % (0-0.5); Lymphocytes Absolute Auto 0.72 K/mm3 (0.9-3.2); Lymphocytes Percent Auto 9.1 % (18.3-44.2); Mean Corpuscular HGB Conc 33.7 g/dl (32-36); Mean Corpuscular Hemoglobin 31.6 pg (26-34); Mean Corpuscular Volume 93.8 fl (80-100); Mean Platelet Volume 8.6 fl (7.4-10.4); Monocytes Absolute Auto 0.5 K/mm3 (0.1-0.6); Monocytes Percent Auto 6.1 % (2.6-8.5); Neutrophils Absolute Auto 6.6 K/mm3 (1.3-6.7); Neutrophils Percent Auto 83.5 % (45.5-73.1); Platelet Count Result 191 k/mm3 (150-375); Red Blood Count 4.34 M/mm3 (4.6-6.20); Red Cell Distribution Width 14.1 % (11.5-14.5); White Blood Count 7.9 K/mm3 (4.5-10.0)
[2024-05-08 07:05] LABS: Alanine Aminotransferase 16 U/L (6-50); Albumin Level 4.1 g/dL (3.5-5.1); Alkaline Phosphatase 95 U/L (38-126); Anion Gap 12 mmol/L (4-12); Aspartate Amino Transferase 22 U/L (17-59); Bilirubin,Total 0.7 mg/dL (0.2-1.3); Blood Urea Nitrogen 20 mg/dL (9-20); Calcium 9.6 mg/dL (8.4-10.2); Carbon Dioxide 23 mmol/L (22-30); Chloride 104 mmol/L (98-107); Estimated CRCL calculation 100 ml/min; Estimated Glomerular Filt Rate > 60; Glucose 135 mg/dL (65-110); Potassium 3.7 mmol/L (3.4-5.0); Sodium 139 mmol/L (137-145)
[2024-05-08 07:18] LABS: Bacteria Urine None Seen /hpf; Mucus Urine Present /lpf; RBC Urine >100 /hpf (0-2); Squamous Epithelial Cell Urine None Seen /hpf (Few); WBC Urine 0-5 /hpf (0-3)
[2024-05-08 07:22] LABS: Add Urine Microscopic? YES; Appearance Urine Cloudy (Clear); Bilirubin Urine Negative (Negative); Blood Urine 3+ (Negative); Glucose Urine UA Negative (Negative); Ketones Urine Negative (Negative); Leukocyte Esterase Ur 1+ LEU/UL (Negative); Nitrate Urine Negative (Negative); Protein Urine 2+ mg/dL (Negative); Specific Grav Ur 1.016 (1.001-1.035); Urobilinogen Urine 0.2 mg/dL (<2.0); pH Urine 5.5 (5.0-9.0)
[2024-05-08 07:23] LABS: Color Urine Light Red (Yellow)
--- NOTE | 2024-05-08 07:30 | ED.MALEGU ---
HPI - Male Genitourinary General Chief complaint: Urogenital-Male Stated complaint: hematuria Time Seen by Provider: 05/08/24 06:52 Source: patient and family Mode of arrival: ambulatory Limitations: no limitations History of Present Illness HPI Narrative: Patient presents with what started as right low back pain now radiating into low abdominal pain. He has also had hematuria for approximately 24 hours. No history of kidney stones. He denies any urinary frequency or dribbling. He denies any fevers. His pain was 7/10 initially in triage. Denies any nausea or vomiting. He had previously been on Eliquis for pulmonary embolism felt to be provoked by COVID but this was discontinued on Tuesday as recommended by a physician. He had actually just seen his urologist Dr. Bennett yesterday for elevated PSA. Related Data Home Medications Medication Instructions Recorded Confirmed clopidogrel 75 mg tablet 75 mg PO DAILY 08/28/19 02/03/24 Allergies Allergy/AdvReac Type Severity Reaction Status Date / Time chlorhexidine Allergy Intermediate Rash Verified 02/03/24 09:15 [facility] Past Medical History Medical History Arthritis Coronary artery disease COVID Elevated PSA Essential (primary) hypertension Gout History of pulmonary embolism felt to be provoked by/secondary to COVID; Anticoagulation discontinued 05/05/24 Hyperlipidemia Hypertension Metabolic syndrome Vitamin D deficiency Surgical History Surgical History History of coronary angioplasty with insertion of stent History of total right hip replacement Family History Family History Father Family history of malignant neoplasm, Onset Age: 77 Sibling Family history of diabetes mellitus in first degree relative Mother Hypertension, Onset Age: 52 Family history of diabetes mellitus in first degree relative Social History Social History Social History: Surrogate medical decision maker: Pia Escobar, spouse. Code status: Full code. Smoking packs per day: 1 Smoking cigarettes per day: 20.0 Years smoked: 25 Smoking pack-years: 25.00 Smoking status: Former smoker Tobacco type: cigarettes Alcohol intake: current Drinks per week: 6 Alcohol use details: Beer. Substance use: never Substance use type: does not use Current Housing: Decline to Answer Concerned About Future Housing: Decline to Answer Difficulty Paying Gas/Electric Bills: Decline to Answer Difficulty Paying for Meds: Decline to Answer Currently Unemployed: Decline to Answer Education: Decline to Answer Difficulty w/ Childcare or Family Care: Decline to Answer Living arrangements: with family Additional living arrangements comments: Lives with spouse in [place]. Additional occupation/education comments: Desk job, works in sales (cabinetry). Spiritual care concerns: No Exam Narrative: GENERAL: Well-appearing, well-nourished, and in no acute distress. HEAD: Normocephalic, atraumatic. EYES: Non injected, non icteric ENT: Nares clear, no rhinorrhea or epistaxis. NECK: Supple. CHEST: Speaking in full sentences. No respiratory distress. HEART: Regular rate and rhythm. . ABDOMEN: Obese/Protuberant but Soft, nondistended. EXTREMITIES: Normal range of motion. No lower extremity edema. SKIN: Warm, dry, no rash. Venous stasis across bilateral lower extremities. NEURO: No focal deficits. Alert and oriented x3. PSYCH: Normal mood and affect. Course Vital Signs Vital signs: Vital Signs Temperature 98.4 F 05/08/24 06:08 Pulse Rate 71 05/08/24 06:08 Respiratory Rate 17 05/08/24 06:08 Blood Pressure 159/82 H 05/08/24 06:08 Pulse Oximetry 97 05/08/24 06:08 Oxygen Delivery Room Air 05/08/24 0
[2024-05-08] MEDS: TAMSULOSIN HCL 0.4 MG CAPSULE PO (08:12)
[2024-05-08] MEDS: SODIUM CHLORIDE 0.9% IV 1,000 ML 999 ML IV CONT (08:12)
[2024-05-08] MEDS: MORPHINE SULFATE (*CRX) 4 MG/ML INJ IV PUSH (08:13)
[2024-05-08] MEDS: KETOROLAC 15 MG/ML VIAL (*BKC) IV PUSH (08:13)
[2024-05-08 08:32] VITALS: BP 126/87; PULSE 58; RESP 18; TEMP 36.8; O2SAT 98
== END 2024-05-08 09:26 | disposition home or self-care (01) ==
PROVIDERS: Emergency Medicine; Emergency Provider Student in an Organized Health Care Education/Training Program; PCP Emergency Medicine
DX: N13.2 Hydronephrosis with renal and ureteral calculous obstruction (principal); N21.0 Calculus in bladder; R31.9 Hematuria, unspecified; D64.9 Anemia, unspecified; R73.9 Hyperglycemia, unspecified; I25.10 Atherosclerotic heart disease of native coronary artery without angina pectoris; I10 Essential (primary) hypertension; E78.5 Hyperlipidemia, unspecified; E55.9 Vitamin D deficiency, unspecified; E88.810 Metabolic syndrome; M19.90 Unspecified osteoarthritis, unspecified site; M10.9 Gout, unspecified; Z86.711 Personal history of pulmonary embolism; Z86.16 Personal history of COVID-19; Z87.891 Personal history of nicotine dependence; Z79.01 Long term (current) use of anticoagulants; Z79.02 Long term (current) use of antithrombotics/antiplatelets; Z79.899 Other long term (current) drug therapy
CPT/HCPCS: 36415; 74176; 80053; 81001; 85025; 96361; 96374; 96375; 99284; A9270; J1885; J2270; J7030